=== PATIENT | female | born 1980 | race Caucasian/White ===

== ENCOUNTER 2016-07-05 08:59 | Emergency (ER) | payer OTHER, BC ==
[~2016-07-05 08:59] MED LIST: /MOM400 PO; COLA50CA3 PO; IBUP200T2 PO; LEVO500T PO; MORP15TA2 PO; TYLE650T30 PO; XERE5CRE TOP; [UNRECOGNIZED DRUG - OTHER] PO
[2016-07-05] MEDS ORDERED: IBUPROFEN 800 MG TAB As Ordered ONE (09:34)
--- NOTE | 2016-07-05 10:52 | REP ---
SACRUM AND COCCYX RADIOGRAPHS, 07/05/2016: COMPARISON: CT abdomen and pelvis 07/09/2013 only. FINDINGS: SI joints are intact. The sacrum and coccyx are without visualized fracture or displacement. The included portion of the symphysis pubis is intact , however, incompletely included in view. IMPRESSION: Negative sacrum and coccyx. The SI joints are intact bilaterally. MTDD
--- NOTE | 2016-07-05 10:53 | EDDOCDS ---
Nurse's Notes [facility] Name: June Betancourt Age: 35 yrs Sex: Female : 1980 Arrival Date: 07/05/2016 Time: 08:59 Bed PR1 / 25 Private MD: Arsh Nath Diagnosis: Fall on same level from slipping, tripping and stumbling;Contusion of lower back and pelvis Presentation: 07/05 09:14 Presenting complaint: Patient states: Slipped and fell injuring left side left lower mlb1 back with pain radiating upward into back. Adult Sepsis Screening: The patient does not have new or worsening altered mentation. Patient's respiratory rate is less than 22. Systolic blood pressure is greater than 100. Patient has a qSOFA score of 0- Negative Sepsis Screen. Suicide/Homicide risk assessment- the patient denies having any suicidal and/or homicidal ideations and does not present with any other emotional, behavioral or mental health complaints. Status: Patient is not a service porter or dependent. Transition of care: patient was not received from another setting of care. 09:14 Acuity: [place] Level 4 mlb1 09:14 Method Of Arrival: Walkin/Carried/Asstd mlb1 Triage Assessment: 09:16 General: Appears in no apparent distress, Behavior is appropriate for age, cooperative. mlb1 Pain: Location: left hip, low back Pain currently is 5 out of 10 on a pain scale. HIV screening NA for this visit Offered previously. 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 BCP Oral 1 tab once daily - PMHx: none; - PSHx: none; - Social history: Smoking status: Patient states former smoker of tobacco. No barriers to communication noted, The patient speaks fluent Kiswahili, Speaks appropriately for age. - Family history: Not pertinent. - : The pt / caregiver states he / she is not on anticoagulants. Home medication list is obtained from the patient. - Exposure Risk Screening:: None identified. Screenin:08 Screening information is obtained from the patient. Fall risk: No risks identified. mlb1 Assistance ADL's: requires no assistance with activities of daily living. Abuse/DV Screen: The patient / caregiver reports he/she is: not in a situation that causes fear, pain or injury. Nutritional screening: No deficits noted. Advance Directives: Currently, there is no health care proxy. home support is adequate. Assessment: 10:08 Musculoskeletal: Range of motion intact in all extremities. mlb1 10:51 General: Appears in no apparent distress, comfortable, Behavior is appropriate for age, mlb1 cooperative. Pain: Location: back, left hip Pain currently is 7 out of 10 on a pain scale. Neurological: No deficits noted. Vital Signs: 09:00 BP 128 / 74; Pulse 82; Resp 16; Temp 96.9(T); Pulse Ox 100% on R/A; Weight 63.5 kg; sew Height 5 ft. 6 in. (167.64 cm); Pain 4/10; 09:00 Body Mass Index 22.60 (63.50 kg, 167.64 cm) sew Vitals: 09:00 Log In Time: July 05, 2016 at 08:58. sew ED Course: 09:00 Patient visited by Shey Hidalgo. sew 09:00 Arsh Nath is Private Physician. sew 09:00 Patient moved to Waiting sew 09:01 Patient visited by Shey Hidalgo. sew 09:01 Patient moved to Pre RCE sew 09:13 Patient moved to Triage 3 mlb1 09:14 Patient visited by Willem Rodríguez RN. mlb1 09:15 Triage Initiated mlb1 09:18 Emeka Casper PA-C is PHCP. cc10 09:18 Shey Arzate MD is Attending Physician. cc10 09:22 Patient visited by Emeka Casper PA-C. cc10 09:22 Patient visited by Emeka Casper PA-C. cc10 09:39 Patient moved to TR1 mlb1 10:08 No IV's were initiated during this patient's visit. No procedures done that require mlb1 assistance. 10:41 Patient moved to PR1 / 25 jrd 10:44 Arsh Nath is Referral Physician. cc10 10:52 The patient / caregiver is instructed regarding the plan of care and ED course. mlb1 Administered Medications: 09:35 Drug: Ibuprofen 800 mg [ibuprofen 800 mg tablet (1 tabs)] Route: PO; mlb1 Order Results: There are currently no results for this order. Outcome: 10:44 Discharge ordered by Provider. cc10 10:52 Discharge Assessment: Patient awake, alert and oriented x 3. No cognitive and/or mlb1 functional deficits noted. Patient verbalized understanding of disposition instructions. patient administered narcotics - no. The following High Risk Discharge criteria are identified: None. Discharged to home ambulatory. Condition: good. Discharge instructions given to patient, Instructed on discharge instructions, follow up and referral plans. medication usage, no driving heavy equipment, Demonstrated understanding of instructions, medications, Pt was receptive of discharge instructions/ teaching. Prescriptions given X Work note provided to patient. No special radiology studies were completed. Property sent home with patient. 10:52 Patient left the ED. mlb1 Signatures: Willem Rodríguez RN RN mlb1 Shey Hidalgo Colin, PA-C PA-C cc10 Leoncio Russell, STEPHIE DIRECTOR CLIENT SERVICES jrd MTDD
--- NOTE | 2016-07-05 10:53 | EDDOCDS ---
Physician Documentation [facility] Name: June Betancourt Age: 35 yrs Sex: Female : 1980 Arrival Date: 07/05/2016 Time: 08:59 Bed PR Private MD: Arsh Nath Disposition: 07/05/16 10:44 Discharged to Home/Self Care. Impression: Fall on same level from slipping, tripping and stumbling, Contusion of lower back and pelvis. - Condition is Stable. - Discharge Instructions: Contusion. - Prescriptions for Ultram 50 mg Oral Tablet - take 1 tablet by ORAL route every 6 hours As needed MDD: 4 tabs; 16 tablet. - Medication Reconciliation, Local Pharmacy Hours, Work Release Form - 2 day form. - Follow up: Emergency Department; When: As needed. Follow up: Arsh Nath; When: Call to arrange an appointment; Reason: Wound/Symptom Recheck, Recheck today's complaints, Worsening of conditions, Continuance of care. - Problem is new. - Symptoms are unchanged. Historical: - Allergies: no known allergies; - Home Meds: 1. BCP Oral 1 tab once daily - PMHx: none; - PSHx: none; - Social history: Smoking status: Patient states former smoker of tobacco. No barriers to communication noted, The patient speaks fluent Grenadian, Speaks appropriately for age. - Family history: Not pertinent. - : The pt / caregiver states he / she is not on anticoagulants. Home medication list is obtained from the patient. - Exposure Risk Screening:: None identified. 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 6 in. (167.64 cm); Pain 4/10; 09:00 Body Mass Index 22.60 (63.50 kg, 167.64 cm) sew MDM: 09:27 Ibuprofen 800 mg PO once ordered. cc10 09:27 Sacrum/coccyx Ordered. EDMS 10:01 Financial registration complete. lg Administered Medications: 09:35 Drug: Ibuprofen 800 mg [ibuprofen 800 mg tablet (1 tabs)] Route: PO; mlb1 Signatures: Dispatcher [employer] Lilia Antonio, Reg Willem Ohara lg, RN RN mlb1 Emeka Casper, TATIANA PALucero cc10 MTDD
--- NOTE | 2016-07-07 11:53 | EDDOCDS ---
Physician Documentation [facility] Name: June Betancourt Age: 35 yrs Sex: Female : 1980 Arrival Date: 07/05/2016 Time: 08:59 Bed PR Private MD: Arsh Nath Disposition: 07/05/16 10:44 Discharged to Home/Self Care. Impression: Fall on same level from slipping, tripping and stumbling, Contusion of lower back and pelvis. - Condition is Stable. - Discharge Instructions: Contusion. - Prescriptions for Ultram 50 mg Oral Tablet - take 1 tablet by ORAL route every 6 hours As needed MDD: 4 tabs; 16 tablet. - Medication Reconciliation, Local Pharmacy Hours, Work Release Form - 2 day form. - Follow up: Emergency Department; When: As needed. Follow up: Arsh Nath; When: Call to arrange an appointment; Reason: Wound/Symptom Recheck, Recheck today's complaints, Worsening of conditions, Continuance of care. - Problem is new. - Symptoms are unchanged. Historical: - Allergies: no known allergies; - Home Meds: 1. BCP Oral 1 tab once daily - PMHx: none; - PSHx: none; - Social history: Smoking status: Patient states former smoker of tobacco. No barriers to communication noted, The patient speaks fluent [place] Citizen, Speaks appropriately for age. - Family history: Not pertinent. - : The pt / caregiver states he / she is not on anticoagulants. Home medication list is obtained from the patient. - Exposure Risk Screening:: None identified. 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 6 in. (167.64 cm); Pain 4/10; 09:00 Body Mass Index 22.60 (63.50 kg, 167.64 cm) sew MDM: 09:27 Ibuprofen 800 mg PO once ordered. cc10 09:27 Sacrum/coccyx Ordered. EDMS 10:01 Financial registration complete. lg 13:20 T-Sheet-- Draft Copy was scanned into [employer] and attached to record. gb 13:51 [facility] Payment Agreement was scanned into [employer] and attached to record. lg Administered Medications: 09:35 Drug: Ibuprofen 800 mg [ibuprofen 800 mg tablet (1 tabs)] Route: PO; mlb1 Signatures: Dispatcher [employer] EDMS Pratibha Fiore, Reg Reg gb CecyLilia, Reg Reg lg Willem Rodríguez RN RN mlb1 Emeka Casper, TATIANA PALucero cc10 The chart was reviewed and I authenticate all verbal orders and agree with the evaluation and treatment provided.Attachments: 13:20 T-Sheet-- Draft Copy 13:51 [facility] Payment Agreement lg Chart Complete MTDD
--- NOTE | 2016-07-07 11:53 | EDDOCDS ---
Physician Documentation [facility] Name: June Betancourt Age: 35 yrs Sex: Female : 1980 Arrival Date: 07/05/2016 Time: 08:59 Bed PR Private MD: Arsh Nath Disposition: 07/05/16 10:44 Discharged to Home/Self Care. Impression: Fall on same level from slipping, tripping and stumbling, Contusion of lower back and pelvis. - Condition is Stable. - Discharge Instructions: Contusion. - Prescriptions for Ultram 50 mg Oral Tablet - take 1 tablet by ORAL route every 6 hours As needed MDD: 4 tabs; 16 tablet. - Medication Reconciliation, Local Pharmacy Hours, Work Release Form - 2 day form. - Follow up: Emergency Department; When: As needed. Follow up: Arsh Nath; When: Call to arrange an appointment; Reason: Wound/Symptom Recheck, Recheck today's complaints, Worsening of conditions, Continuance of care. - Problem is new. - Symptoms are unchanged. Historical: - Allergies: no known allergies; - Home Meds: 1. BCP Oral 1 tab once daily - PMHx: none; - PSHx: none; - Social history: Smoking status: Patient states former smoker of tobacco. No barriers to communication noted, The patient speaks fluent Citizen Of [place], Speaks appropriately for age. - Family history: Not pertinent. - : The pt / caregiver states he / she is not on anticoagulants. Home medication list is obtained from the patient. - Exposure Risk Screening:: None identified. 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 6 in. (167.64 cm); Pain 4/10; 09:00 Body Mass Index 22.60 (63.50 kg, 167.64 cm) sew MDM: 09:27 Ibuprofen 800 mg PO once ordered. cc10 09:27 Sacrum/coccyx Ordered. EDMS 10:01 Financial registration complete. lg 13:20 T-Sheet-- Draft Copy was scanned into [employer] and attached to record. gb 13:51 [facility] Payment Agreement was scanned into [employer] and attached to record. lg Administered Medications: 09:35 Drug: Ibuprofen 800 mg [ibuprofen 800 mg tablet (1 tabs)] Route: PO; mlb1 Signatures: Dispatcher [employer] EDMS Pratibha Fiore, Reg Reg gb CecyLilia, Reg Reg lg Willem Rodríguez RN RN mlb1 Emeka Casper, TATIANA PALucero cc10 The chart was reviewed and I authenticate all verbal orders and agree with the evaluation and treatment provided.Attachments: 13:20 T-Sheet-- Draft Copy 13:51 [facility] Payment Agreement lg Chart Complete MTDD
--- NOTE | 2016-07-07 11:53 | EDDOCDS ---
Nurse's Notes [facility] Name: June Betancourt Age: 35 yrs Sex: Female : 1980 Arrival Date: 07/05/2016 Time: 08:59 Bed PR1 / 25 Private MD: Arsh Nath Diagnosis: Fall on same level from slipping, tripping and stumbling;Contusion of lower back and pelvis Presentation: 07/05 09:14 Presenting complaint: Patient states: Slipped and fell injuring left side left lower mlb1 back with pain radiating upward into back. Adult Sepsis Screening: The patient does not have new or worsening altered mentation. Patient's respiratory rate is less than 22. Systolic blood pressure is greater than 100. Patient has a qSOFA score of 0- Negative Sepsis Screen. Suicide/Homicide risk assessment- the patient denies having any suicidal and/or homicidal ideations and does not present with any other emotional, behavioral or mental health complaints. Status: Patient is not a service desk manager or dependent. Transition of care: patient was not received from another setting of care. 09:14 Acuity: [place] Level 4 mlb1 09:14 Method Of Arrival: Walkin/Carried/Asstd mlb1 Triage Assessment: 09:16 General: Appears in no apparent distress, Behavior is appropriate for age, cooperative. mlb1 Pain: Location: left hip, low back Pain currently is 5 out of 10 on a pain scale. HIV screening NA for this visit Offered previously. 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 BCP Oral 1 tab once daily - PMHx: none; - PSHx: none; - Social history: Smoking status: Patient states former smoker of tobacco. No barriers to communication noted, The patient speaks fluent Telugu, Speaks appropriately for age. - Family history: Not pertinent. - : The pt / caregiver states he / she is not on anticoagulants. Home medication list is obtained from the patient. - Exposure Risk Screening:: None identified. Screenin:08 Screening information is obtained from the patient. Fall risk: No risks identified. mlb1 Assistance ADL's: requires no assistance with activities of daily living. Abuse/DV Screen: The patient / caregiver reports he/she is: not in a situation that causes fear, pain or injury. Nutritional screening: No deficits noted. Advance Directives: Currently, there is no health care proxy. home support is adequate. Assessment: 10:08 Musculoskeletal: Range of motion intact in all extremities. mlb1 10:51 General: Appears in no apparent distress, comfortable, Behavior is appropriate for age, mlb1 cooperative. Pain: Location: back, left hip Pain currently is 7 out of 10 on a pain scale. Neurological: No deficits noted. Vital Signs: 09:00 BP 128 / 74; Pulse 82; Resp 16; Temp 96.9(T); Pulse Ox 100% on R/A; Weight 63.5 kg; sew Height 5 ft. 6 in. (167.64 cm); Pain 4/10; 09:00 Body Mass Index 22.60 (63.50 kg, 167.64 cm) sew Vitals: 09:00 Log In Time: July 05, 2016 at 08:58. sew ED Course: 09:00 Patient visited by Shey Hidalgo. sew 09:00 Arsh Nath is Private Physician. sew 09:00 Patient moved to Waiting sew 09:01 Patient visited by Shey Hidalgo. sew 09:01 Patient moved to Pre RCE sew 09:13 Patient moved to Triage 3 mlb1 09:14 Patient visited by Willem Rodríguez RN. mlb1 09:15 Triage Initiated mlb1 09:18 Emeka Casper PA-C is PHCP. cc10 09:18 Shey Arzate MD is Attending Physician. cc10 09:22 Patient visited by Emeka Casper PA-C. cc10 09:22 Patient visited by Emeka Casper PA-C. cc10 09:39 Patient moved to TR1 mlb1 10:08 No IV's were initiated during this patient's visit. No procedures done that require mlb1 assistance. 10:41 Patient moved to PR1 / 25 jrd 10:44 Arsh Nath is Referral Physician. cc10 10:52 The patient / caregiver is instructed regarding the plan of care and ED course. mlb1 11:19 Sacrum/coccyx Returned. EDMS 13:20 T-Sheet-- Draft Copy was scanned into [employer] and attached to record. gb 13:49 Patient name changed from June\S\Sola\S\Beirman\S\ to June\S\M\S\Beirman. EDMS 13:51 ON LICENSE OF [facility] Payment Agreement was scanned into [employer] and attached to record. lg Administered Medications: 09:35 Drug: Ibuprofen 800 mg [ibuprofen 800 mg tablet (1 tabs)] Route: PO; mlb1 Order Results: Radiology Order: Sacrum/coccyx Test: Sacrum/coccyx REASON FOR EXAMINATION: Trauma; SACRUM AND COCCYX RADIOGRAPHS, 07/05/2016:; ; COMPARISON: CT abdomen and pelvis 07/09/2013 only.; ; FINDINGS: SI joints are intact. The sacrum and coccyx are without visualized; fracture or displacement. The included portion of the symphysis pubis is intact; ,; however, incompletely included in view.; ; IMPRESSION:; Negative sacrum and coccyx. The SI joints are intact bilaterally.; ; MTDD Outcome: 10:44 Discharge ordered by Provider. cc10 10:52 Discharge Assessment: Patient awake, alert and oriented x 3. No cognitive and/or mlb1 functional deficits noted. Patient verbalized understanding of disposition instructions. patient administered narcotics - no. The following High Risk Discharge criteria are identified: None. Discharged to home ambulatory. Condition: good. Discharge instructions given to patient, Instructed on discharge instructions, follow up and referral plans. medication usage, no driving heavy equipment, Demonstrated understanding of instructions, medications, Pt was receptive of discharge instructions/ teaching. Prescriptions given X Work note provided to patient. No special radiology studies were completed. Property sent home with patient. 10:52 Patient left the ED. mlb1 Signatures: Dispatcher [facility] EDAK Pratibha Fiore, Reg Reg gb Lilia Sam, Reg Reg lg Willem Rodríguez RN RN mlb1 Shey Hidalgo Colin, PA-C PA-C cc10 Leoncio Russell PCA INSEMINATOR jrd Chart Complete MTDD
== END 2016-07-05 10:52 | disposition home or self-care (01) ==
LOC: M ED 08:59
DX: S30.0XXA Contusion of lower back and pelvis, initial encounter (principal); W00.0XXA Fall on same level due to ice and snow, initial encounter; Y92.89 Other specified places as the place of occurrence of the external cause; Y93.01 Activity, walking, marching and hiking; Y99.0 Civilian activity done for income or pay; Z87.891 Personal history of nicotine dependence; Z79.3 Long term (current) use of hormonal contraceptives

== ENCOUNTER 2019-01-29 10:50 | Emergency (ER) | payer BC, OTHER ==
[~2019-01-29] VITALS: Ht 167.6 cm; Wt 63.6 kg
[~2019-01-29 10:50] MED LIST changes: -/MOM400 PO; +MILK10SU PO
[2019-01-29] MEDS ORDERED: ONDANSETRON 4MG/2ML VIAL (J2405) As Ordered ONE (10:59)
[2019-01-29] MEDS ORDERED: [UNRECOGNIZED DRUG - CODE] (11:03)
[2019-01-29 11:17] LABS: BASO % 0.3 % (0.0-1.0); EOS % 0.3 % (0.0-3.0); HEMATOCRIT 40.7 % (36.0-47.0); HEMOGLOBIN 13.7 g/dl (12.0-15.5); LYMPH # 1.4 10^3/uL (1.5-4.5); LYMPH % 18.6 % (24.0-44.0); MEAN CORPUSCULAR HEMOGLOBIN 33.5 pg (27.0-33.0); MEAN CORPUSCULAR HGB CONC 33.7 g/dl (32.0-36.5); MEAN CORPUSCULAR VOLUME 99.5 fl (80.0-96.0); MONO # 0.4 10^3/uL (0.0-0.8); MONO % 5.5 % (0.0-5.0); NEUTROPHILS # 5.6 10^3/uL (1.8-7.7); PLATELET COUNT, AUTOMATED 294 10^3/uL (150-450); RED BLOOD COUNT 4.09 10^6/uL (4.00-5.40); WHITE BLOOD COUNT 7.5 10^3/uL (4.0-10.0)
[2019-01-29 11:50] LABS: BLOOD UREA NITROGEN 9 MG/DL (7-18); CALCIUM LEVEL 9.2 MG/DL (8.5-10.1); CARBON DIOXIDE LEVEL 26 MEQ/L (21-32); CHLORIDE LEVEL 102 MEQ/L (98-107); CK-MB VALUE MASS < 1.0 NG/ML (<3.6); CPK CREATINE PHOSPHOKINASE 128 U/L (26-192); CREATININE FOR GFR 0.69 MG/DL (0.55-1.30); GLOMERULAR FILTRATION RATE > 60.0 (>60); GLUCOSE, FASTING 95 MG/DL (70-100); MAGNESIUM LEVEL 2.1 MG/DL (1.8-2.4); MB/CK RELATIVE INDEX 0.78 (< OR =4); POTASSIUM SERUM 3.9 MEQ/L (3.5-5.1); SODIUM LEVEL 137 MEQ/L (136-145); TROPONIN I < 0.02 NG/ML (< 0.10)
[2019-01-29] MEDS ORDERED: ONDANSETRON 4MG/2ML VIAL (J2405) IV ONE (12:00)
--- NOTE | 2019-01-29 12:20 | REP ---
AXIAL CT OF THE HEAD WITHOUT CONTRAST CLINICAL INDICATION: Vertigo. COMPARISON: None FINDINGS: There is no visible soft tissue swelling or calvarial fracture. There is no evidence of acute intracranial hemorrhage, midline shift or mass effect. Ventricles and sulci are symmetric. Ronquillo-white matter differentiation is maintained. Basal cisterns are patent. The orbital contents are intact. The visualized paranasal sinuses are clear. Paranasal sinuses and mastoid air cells are clear. IMPRESSION: No acute intracranial abnormality. Electronically Signed by Colby Harris MD 01/29/2019 05:51 P
[2019-01-29] MEDS ORDERED: MECLIZINE 25 MG TABLET PO ONE ×2 (12:30→20:00)
[2019-01-29] MEDS ORDERED: LORazepam 2 MG/ML VIAL (J2060) IV ONE (13:00)
[2019-01-29] MEDS ORDERED: KETOROLAC 30 MG/ML VIAL (J1885) IV ONE (13:00)
[2019-01-29 14:29] LABS: C REACTIVE PROTEIN QUANTITATIV < 0.30 MG/DL (0.00-0.30); HCG, SERUM QUANTITATIVE < 1.0 MIU/ML
[2019-01-29 14:44] LABS: ERYTHROCYTE SEDIMENTATION RATE 8 mm/hr (0-20)
[2019-01-29] MEDS ORDERED: METOCLOPRAMIDE INJ 10MG/2ML VIAL (J2765) IV ONE (16:00)
[2019-01-29] MEDS ORDERED: PROHANCE 279.3MG/ML 15ML VIAL (A9576) As Ordered ONE (16:50)
--- NOTE | 2019-01-29 18:07 | REPVR ---
EXAM: MR Angiogram Head Without and With Contrast, Venogram EXAM DATE/TIME: 01/29/2019 5:16 PM CLINICAL HISTORY: 38 years old, female; Pain; Headache; Additional info: Vertigo (mrv), posterior headache TECHNIQUE: Imaging protocol: MR angiogram of the head without and with intravenous contrast. Exam focused on the veins. Contrast material: PROHANCE;Contrast volume: 12 ml;Contrast route: IV; COMPARISON: MRI-Brain without Contrast 01/29/2019 4:58 PM FINDINGS: Superior sagittal sinus: Patent. Straight sinus: Patent. Internal cerebral and cortical veins: Unremarkable as visualized. Transverse sinuses: Patent. Incidental left arachnoid granulation. Sigmoid sinuses: Patent. Internal jugular veins: Visualized segment patent. IMPRESSION: No venous thrombus. Electronically signed by: Carmen Soto On 01/29/2019 18:06:58 PM
--- NOTE | 2019-01-29 18:11 | REPVR ---
EXAM: MR Head Without Contrast EXAM DATE/TIME: 01/29/2019 5:16 PM CLINICAL HISTORY: 38 years old, female; Pain; Headache not specified; Patient HX: Posterior headache; Additional info: Vertigo TECHNIQUE: Imaging protocol: MR of the head without contrast. COMPARISON: CT Head without contrast 01/29/2019 11:21 AM FINDINGS: Brain: No acute infarct identified on the diffusion weighted imaging. No parenchymal hemorrhage. No evidence of brain parenchymal edema or intracranial mass effect. No significant white matter disease for the patient's age. Ventricles: Unremarkable. No ventriculomegaly. Bones/joints: Unremarkable. Soft tissues: Normal. Sinuses: Trace ethmoid sinus mucosal thickening. Mastoid air cells: Normal as visualized. No mastoid effusion. Orbits: Unremarkable. IMPRESSION: No acute intracranial abnormality. Electronically signed by: Carmen Soto On 01/29/2019 18:11:26 PM
[2019-01-29 19:37] VITALS: BP 114/67
[2019-01-29] MEDS ORDERED: MECL-86 PO (19:42)
[2019-01-29] MEDS ORDERED: REGL5TAB2 PO (19:42)
[2019-01-29] MEDS ORDERED: TOPA1TAB PO (19:44)
[2019-01-29] MEDS ORDERED: METOCLOPRAMIDE 5 MG TAB PO ONE (20:00)
--- NOTE | 2019-01-30 06:06 | ECGEPIP ---
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
== END 2019-01-29 20:25 | disposition home or self-care (01) ==
LOC: M ED 10:50
DX: R42 Dizziness and giddiness (principal); I45.19 Other right bundle-branch block; I47.1 Supraventricular tachycardia; Z87.891 Personal history of nicotine dependence; Z79.899 Other long term (current) drug therapy
CPT/HCPCS: 70450; 70546; 70551; 80048; 82550; 82553; 83735; 84443; 84484; 84702; 85025; 85652; 86140; 93005; 93041; 94760; 96374; 96375; 99285; A9576; J1885; J2060; J2405; J2765

== ENCOUNTER → 2019-04-25 | Outpatient (CLI) | payer BC, OTHER ==
[~2019-04-25] MED LIST changes: +MECL-86 PO; +REGL5TAB2 PO; +TOPA1TAB PO; +[UNRECOGNIZED DRUG - CODE]
--- NOTE | 2019-04-25 11:46 | REP ---
PA and lateral chest: There are no comparisons. There is an infiltrate inferiorly in the left lung. Remainder the lung medina are clear. No pleural effusions. Cardiac size is normal. The luciano, mediastinum, skeletal structures are unremarkable. Impression: Infiltrate in the left lung inferiorly. Electronically Signed by Young Tan MD 04/25/2019 11:38 A
== END ==
LOC: M ADAMS 11:04
PROVIDERS: ATTEND Physician Assistant
DX: J20.9 Acute bronchitis, unspecified (principal); R91.8 Other nonspecific abnormal finding of lung field

== ENCOUNTER → 2019-05-13 | Outpatient (REF) | payer OTHER ==
[2019-05-13 11:29] LABS: BASO % 0.4 % (0.0-1.0); EOS % 0.4 % (0.0-3.0); HEMATOCRIT 37.6 % (36.0-47.0); HEMOGLOBIN 12.5 g/dl (12.0-15.5); LYMPH # 0.4 10^3/uL (1.5-5.0); MEAN CORPUSCULAR HEMOGLOBIN 32.6 pg (27.0-33.0); MEAN CORPUSCULAR HGB CONC 33.2 g/dl (32.0-36.5); MEAN CORPUSCULAR VOLUME 98.2 fl (80.0-96.0); MONO # 0.4 10^3/uL (0.0-0.8); MONO % 6.4 % (0.0-5.0); NEUTROPHILS # 4.6 10^3/uL (1.5-8.5); NEUTROPHILS % 85.4 % (36.0-66.0); PLATELET COUNT, AUTOMATED 241 10^3/uL (150-450); RED BLOOD COUNT 3.83 10^6/uL (4.00-5.40); WHITE BLOOD COUNT 5.4 10^3/uL (4.0-10.0)
[2019-05-13 12:01] LABS: ALBUMIN 3.5 GM/DL (3.2-5.2); ALT/SGPT 17 U/L (12-78); BILIRUBIN,TOTAL 0.7 MG/DL (0.2-1.0); BLOOD UREA NITROGEN 6 MG/DL (7-18); CARBON DIOXIDE LEVEL 28 MEQ/L (21-32); CHLORIDE LEVEL 102 MEQ/L (98-107); CREATININE FOR GFR 0.64 MG/DL (0.55-1.30); GLOMERULAR FILTRATION RATE > 60.0 (>60); GLUCOSE, FASTING 86 MG/DL (70-100); HCG, SERUM QUANTITATIVE < 1.0 MIU/ML; POTASSIUM SERUM 3.8 MEQ/L (3.5-5.1); SODIUM LEVEL 137 MEQ/L (136-145)
== END ==
LOC: M LABDRWAD 10:26
PROVIDERS: ATTEND Physician Assistant
DX: R05 Cough (principal)

== ENCOUNTER → 2020-01-27 | Outpatient (REF) | payer OTHER | LOC: M SFHCWAGY 09:25 | PROVIDERS: ATTEND Surgery | DX: N60.02 Solitary cyst of left breast (principal) ==

== ENCOUNTER → 2020-01-27 | Outpatient (CLI) | payer BC ==
--- NOTE | 2020-03-09 08:44 | REP ---
FOCUSED LEFT BREAST ULTRASOUND: ULTRASOUND GUIDANCE HISTORY: Ultrasound guidance for cyst aspiration. FINDINGS: Sonographic guidance is provided to Dr. Sloan who performed ultrasound- guided left breast cyst aspiration. PAVAN
--- NOTE | 2020-03-09 08:46 | REP ---
BILATERAL BREAST SONOGRAPHY: HISTORY: Bilateral breast cysts and dense breast tissue. FINDINGS: Heterogeneous fibroglandular tissue is seen bilaterally. There is a cyst at 10 o'clock in the right breast 4 cm from the nipple measuring 2.6 x 1.9 x 1.2 cm. This appears simple. At 11 o'clock in the right breast, 3 cm from the nipple, there is a simple cyst measuring 1.5 x 1.2 x 1.3 cm. In the left breast at 12 o'clock, 4 cm from the nipple, there is a grouping of cysts with aggregate dimension of 1.7 cm x 0.7 x 1.0 cm. In the left breast at 1 o'clock, 2 cm from the nipple, there is a 0.7 x 0.7 x 0.6 cm cyst. No suspicious sonographic lesion. IMPRESSION: BI-RADS category 2 benign findings. MTDD
--- NOTE | 2020-03-10 19:36 | ROOPDOC ---
[facility] Report Of Operation Report of Operation This is a late entry note for the encounter from the date 01/27/20. Delay is due to major systemwide [facility] computer outage. Procedure Date:01/27/2020 Diagnosis: Left painful breast cyst Procedure:Aspiration of left painful left breast cyst Proceduralist: Suze Barron D.O. Lidocaine 1% LOT [id number] Expiration: 11/2022 Sodium Bicarbonate 8.4% LOT 06-081 EV Expiration: 11/2020 Procedure details: Informed consent was obtained. The most common risk and possible complications including bleeding, hematoma, bruising, infection, injury to surrounding structures were explained to the patient and she expressed understanding. Patient was taken to the procedure room and placed on the bed. Appropriate time out was done stating patients name, date of , and the procedure to be performed. The left breast was prepped and draped in the usual fashion. The ultrasound was used to confirm the location of the painful cyst in the upper outer quadrant of the left breast. Cyst measured over 4 cm. Plain Lidocaine 1% and 8.4% sodium bicarbonate 10:1 mix was used to numb the skin, and tissues along the anticipated aspiration tract. 18 G needle was used to aspirate cyst under direst ultrasound guidance. Aspirated fluid was turbid and was sent for cytology. 31 cc was aspirated. The cyst completely collapsed and images were captured. Manual pressure over the cyst aspiration site and tract was held. No bleeding was noted upon removal of the pressure. Patient tolerated procedure well. Discharge instructions were discussed with the patient and she expressed understanding. SUZE BARRON DO Mar 10, 2020 19:36
== END ==
LOC: M WHC 17:00
PROVIDERS: ATTEND Surgery
DX: N60.01 Solitary cyst of right breast (principal); N60.12 Diffuse cystic mastopathy of left breast

== ENCOUNTER → 2020-02-01 | Outpatient (REF) | payer OTHER, BC | LOC: M LAB REF 12:06 | PROVIDERS: ATTEND Physician Assistant | DX: N39.0 Urinary tract infection, site not specified (principal) ==

== ENCOUNTER → 2020-06-23 | Outpatient (CLI) | payer BC ==
--- NOTE | 2020-06-23 10:17 | REP ---
INDICATION: LEFT BREAST CALCS,BIRADS 3,6 MO F/U/PREV LARGE CYST ASP; LEFT BREAST SITE OF PREVIOUS LARGE CYST ASPIRATION. COMPARISON: 01/06/2020. TECHNIQUE: Left breast mammogram performed in the MLO, mL and CC projections with tomosynthesis and magnification views. Focused left breast ultrasound performed. FINDINGS: The breast parenchyma is extremely dense, limiting the sensitivity of the mammogram. The previously noted large simple cyst the upper-outer quadrant of the left breast was reportedly aspirated is no longer visualized. There does appear to be a smoothly marginated nodule in that region by 1.3 cm in diameter. Otherwise no definite mass is visualized and there is no evidence of architectural distortion. There are tiny calcifications visualized once again in the upper-outer quadrant of the left breast. These are not tightly clustered but there is a geographic area of multiple tiny calcifications this may have slightly increased in number. These are indeterminate and stereotactic biopsy is recommended. Left breast ultrasound performed in the upper-outer quadrant at the site of the previously noted simple cyst. Multiple simple cysts are seen throughout the upper outer quadrant of the left breast. Two simple cysts are seen at 12 o'clock the largest measuring 1.3 cm in diameter. There is a 5 mm cyst at 1 o'clock. There are 4 cysts at 2 o'clock, the largest measuring 1.3 cm in diameter. There are 2 mildly dilated ducts in the retroareolar region containing simple fluid. The Volpara volumetric breast density pattern is C. IMPRESSION: BIRADS/ACR category 4, suspicious. In the upper outer quadrant of the left breast there are tiny calcifications which may have slightly increased in number when compared to the prior study. There are not tightly clustered but are located in a geographic area of the upper-outer quadrant. They are indeterminate. Stereotactic biopsy is recommended. Multiple small cysts are seen throughout the upper outer quadrant of the left breast. This patient's Tyrer-Cuzick lifetime breast cancer risk assessment score is 11.8%. This mammogram was interpreted with the aid of an FDA-approved computer-aided detection system. The patient states she had a clinical breast exam in January 2020. The patient letter being requested is M4. RECOMMENDATION: Recommend stereotactic biopsy of microcalcifications upper outer quadrant left breast. <Electronically signed by Young Ronquillo > 06/23/20 101
== END ==
LOC: M WHC 07:43
PROVIDERS: ATTEND Surgery
DX: R92.1 Mammographic calcification found on diagnostic imaging of breast (principal); N60.02 Solitary cyst of left breast
CPT/HCPCS: 76642; 77065; G0279

== ENCOUNTER → 2020-06-27 | Outpatient (REF) | payer OTHER ==
[2020-06-27 16:14] LABS: FREE T4 0.91 NG/DL (0.76-1.46); THYROID STIMULATING HORMONE 0.747 uIU/ML (0.358-3.740)
[2020-06-27 16:16] LABS: PROLACTIN 3.7 NG/ML
== END ==
LOC: M PLALAB 13:30
PROVIDERS: ATTEND Surgery
DX: N64.52 Nipple discharge (principal)

== ENCOUNTER → 2020-06-29 | Outpatient (CLI) | payer BC ==
--- NOTE | 2020-06-29 12:53 | REP ---
INDICATION: R92.1 LT BREAST CALCIFICATIONS,STEROTACTIC BIOPSY. COMPARISON: 06/23/2020. TECHNIQUE: States that the guidance provided for Dr. Sloan who performed stereotactic biopsy of microcalcifications in the outer left breast. FINDINGS: Stereotactic guidance provided for Dr. Sloan performed stereotactic biopsy of microcalcifications in the outer left breast. IMPRESSION: Stereotactic guidance provided for Dr. Sloan performed stereotactic biopsy of microcalcifications in the outer left breast. RECOMMENDATION: Clinical follow-up. <Electronically signed by Young Ronquillo > 06/29/20 [id number]
--- NOTE | 2020-06-29 12:56 | REP ---
INDICATION: R92.1 LT BREAST CALCIFICATIONS,POST STEROTACTIC BIOPSY. COMPARISON: 06/23/2020. TECHNIQUE: ML and CC views left breast performed s/p stereotactic biopsy upper-outer left breast microcalcifications. FINDINGS: Two biopsy clips are appropriately placed in the upper-outer quadrant of the left breast at the site of stereotactic biopsies performed today by Dr. Sloan. IMPRESSION: Two biopsy clips in the upper outer quadrant of the left breast at the site of 2 stereotactic biopsies performed today by Dr. Sloan. Specimen radiographs showed microcalcifications in the specimens. RECOMMENDATION: Clinical follow-up. <Electronically signed by Young Ronquillo > 06/29/20 [id number]
--- NOTE | 2020-06-29 13:44 | REP ---
INDICATION: R92.1 LT BREAST CALCIFICATIONS,STEROTACTIC BIOPSY. COMPARISON: 06/23/2020. TECHNIQUE: Specimen radiographs performed. FINDINGS: Multiple microcalcifications are seen in the biopsy specimens. IMPRESSION: Successful sampling of microcalcifications outer left breast. RECOMMENDATION: Clinical follow-up. <Electronically signed by Young Ronquillo > 06/29/20 [id number]
[2020-06-29 16:52] VITALS: BP 130/68
--- NOTE | 2020-07-02 22:36 | ROOPDOC ---
[facility] Report Of Operation Report of Operation DATE OF PROCEDURE: 06/29/20 DIAGNOSIS: Left breast suspicious calcifications, numerous clusters PROCEDURE: Left breast stereotactic biopsy of two clusters with clips placement SURGEON: Suze Barron BLOOD LOSS: minimal Lidocaine 1% LOT [id number] Expiration 02/06 Sodium Bicarbonate 8.4% LOT 06-081-[id number] Expiration 12/05 LATERAL BIOPSY SITE Hydromark clip [id number] Expiration 09/05 T1 titanium shaped 1 Bx device: Stereotactic Mammotome Revolve Dual Vacuum- assisted Biopsy System 10 G LOT [id number] Expiration 02/06 MEDIAL BIOPSY SITE Hydromark clip LOT [id number] Expiration 07/08 T3 titanium shaped 3 Bx device: Stereotactic Mammotome Revolve Dual Vacuum- assisted Biopsy System 10 G LOT [id number] Expiration 02/06 Informed consent was obtained in the preop area. The most common risk and possible complications including bleeding, hematoma, bruising, infection, injury to surrounding structures were explained to the patient and she expressed understanding. Patient was taken to the procedure room and placed prone [facility] with the left breast hanging through the table aperture. Left breast was placed into Cranio-Caudal compression and Analytics Architect carmelo images were taken. Suspicious clusters of calcifications were identified on the carmelo images and two clusters, one lateral, one medial were set as targets. CC approach from the top was chosen for this procedure. At this time, since we were able to confirm visibility of the suspicious clusters of calcifications and patient tolerated prone positioning allowing to proceed with the biopsy, appropriate time out was done stating patients name, date of , and the procedure to be performed. The left breast in CC compression was prepped in the usual fashion. Our attention was turned toward the lateral cluster of calcifications. Plain Lidocaine 1% and 8.4% sodium bicarbonate 10:1 mix was used to anesthetize the skin, the biopsy site and tissues along the anticipated biopsy tract. Small skin incision was made with blade number 11. Mammotome 10 G stereotactic breast biopsy device was inserted through the incision and advanced to the previously set coordinates marking the target lesion. Pre-fire imaging was taken to assure appropriate positioning. At this time, Mammotome 10 G breast biopsy device was fired and vacuum assisted biopsies were collected. The biopsy samples were investigated with [employer] Imaging system and calcifications were observed. Biopsy samples were then placed in the formaldehyde, marked with patients name and left lateral breast biopsy site, and sent to pathology for evaluation. SHAPE 1 Hydromark clip was placed into the Mammotome biopsy device channel and deployed. Post-deployment imaging was done to assure appropriate clip deployment. Clip was noted in the lateral left breast. Next, our attention was turned toward the medial cluster of calcifications. The left breast in CC compression was prepped in the usual fashion. Our attention was turned toward the lateral cluster of calcifications. Plain Lidocaine 1% and 8.4% sodium bicarbonate 10:1 mix was used to anesthetize the skin, the biopsy site and tissues along the anticipated biopsy tract. Small skin incision was made with blade number 11. Mammotome 10 G stereotactic breast biopsy device was inserted through the incision and advanced to the previously set coordinates marking the target lesion. Pre-fire imaging was taken to assure appropriate positioning. At this time, Mammotome 10 G breast biopsy device was fired and vacuum assisted biopsies were collected. The biopsy samples were investigated with [employer] Imaging system and calcifications were observed. Biopsy samples were then placed in the formaldehyde, marked with patients name and left medial breast biopsy site, and sent to pathology for evaluation. SHAPE 3 Hydromark clip was placed into the Mammotome biopsy device channel and deployed. Post-deployment imaging was done to assure appropriate clip deplo yment. Clip was noted in the medial left breast. At this point, paddle CC compression of the left breast was released and manual pressure was held to decrease harmonic effect and to assure hemostasis. No bleeding was noted upon removal of the pressure. Patient was slowly repositioned and placed into sitting position, and then assisted off the table. Post-biopsy mammogram of the left breast was obtained and showed clips in expected position. Postprocedural dressing was placed. Patient tolerated procedure well and was taken to the recovery unit in stable condition. Discharge instructions were discussed with the patient and she expressed understanding. SUZE BARRON DO Jul 02, 2020 22:36
== END ==
LOC: M WHCPRO 10:29
PROVIDERS: ATTEND Surgery
DX: N60.12 Diffuse cystic mastopathy of left breast (principal); R92.1 Mammographic calcification found on diagnostic imaging of breast

== ENCOUNTER → 2020-08-19 | Outpatient (REF) | payer OTHER | LOC: M LAB REF 15:20 | PROVIDERS: ATTEND Family Medicine | DX: N39.0 Urinary tract infection, site not specified (principal) ==

== ENCOUNTER 2020-09-26 17:15 | Emergency (ER) | payer OTHER, BC ==
[2020-09-26 20:37] LABS: BASO # 0.1 10^3/uL (0.0-0.2); BASO % 0.5 % (0.0-1.0); EOS % 0.2 % (0.0-3.0); HEMATOCRIT 39.9 % (36.0-47.0); HEMOGLOBIN 13.1 g/dl (12.0-15.5); LYMPH # 2.4 10^3/uL (1.5-5.0); LYMPH % 21.5 % (24.0-44.0); MEAN CORPUSCULAR HEMOGLOBIN 32.2 pg (27.0-33.0); MEAN CORPUSCULAR HGB CONC 32.8 g/dl (32.0-36.5); MONO # 0.6 10^3/uL (0.0-0.8); MONO % 5.2 % (2.0-8.0); NEUTROPHILS % 72.2 % (36.0-66.0); PLATELET COUNT, AUTOMATED 293 10^3/uL (150-450); RED BLOOD COUNT 4.07 10^6/uL (4.00-5.40); WHITE BLOOD COUNT 11.1 10^3/uL (4.0-10.0)
[2020-09-26 20:40] LABS: APPEARANCE, URINE CLEAR (CLEAR); BACTERIA, URINE AUTO 1+ (NEGATIVE); BILIRUBIN, URINE AUTO NEGATIVE (NEGATIVE); BLOOD, URINE BLOOD NEGATIVE (NEGATIVE); COLOR, URINE YELLOW (YELLOW); GLUCOSE, URINE (UA) AUTO NEGATIVE (NEGATIVE); KETONE, URINE AUTO TRACE mg/dL (NEGATIVE); LEUKOCYTE ESTERASE, URINE AUTO TRACE (NEGATIVE); MUCUS, URINE SMALL (NEGATIVE); NITRITE, URINE AUTO NEGATIVE (NEGATIVE); PROTEIN, URINE AUTO NEGATIVE (NEGATIVE); RBC, URINE AUTO 2 /HPF (0-3); SPECIFIC GRAVITY URINE AUTO 1.008 (1.002-1.035); SQUAMOUS EPITHELIAL CELL UR AU 0 /HPF (0-6); UROBILINOGEN, URINE AUTO 0.2 mg/dL (0.0-2.0); WBC, URINE AUTO 1 /HPF (0-3)
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
[2020-09-26] MEDS ORDERED: ONDANSETRON 4MG/2ML VIAL IV ONE (21:30)
[2020-09-26] MEDS ORDERED: diazePAM 10MG/2ML SYRINGE (J3360 PER 5MG) IV ONE ×2 (21:30→23:10)
[2020-09-26] MEDS ORDERED: ISOVUE-370 76% 100ML VIAL As Ordered ONE (21:42)
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
[2020-09-26] MEDS ORDERED: KETOROLAC 30 MG/ML 1ML VIAL IV ONE (23:10)
[2020-09-26] MEDS ORDERED: NAPR-837 PO (23:15)
[2020-09-26] MEDS ORDERED: ASPE4PAD TOP (23:15)
[2020-09-26] MEDS ORDERED: ROBA750T4 PO (23:15)
[2020-09-26 23:55] VITALS: BP 139/78
== END 2020-09-26 23:58 | disposition home or self-care (01) ==
LOC: M ED 17:15
DX: M54.2 Cervicalgia (principal); M54.9 Dorsalgia, unspecified; R51.9 Headache, unspecified; V43.52XA Car driver injured in collision with other type car in traffic accident, initial encounter; Y92.9 Unspecified place or not applicable; Y93.9 Activity, unspecified; Y99.9 Unspecified external cause status; F17.200 Nicotine dependence, unspecified, uncomplicated; Z79.3 Long term (current) use of hormonal contraceptives; Z79.899 Other long term (current) drug therapy
CPT/HCPCS: 70450; 71250; 72125; 74177; 80047; 81001; 84702; 85025; 96374; 96375; 96376; 99284; J1885; J2405; J3360; Q9967

== ENCOUNTER → 2020-12-15 | Outpatient (CLI) | payer BC ==
[~2020-12-15] MED LIST changes: +ASPE4PAD TOP; +NAPR-837 PO; +ROBA750T4 PO
--- NOTE | 2020-12-15 13:44 | REPMRS ---
Patient History The patient states she had a clinical breast exam in July 2020. Benign stereotatic loc for ea lesion. of the left breast, June 29, 2020. Benign radio exam breast specimen. of the left breast, June 29, 2020. Taking hormonal contraceptives for 22 years. Diagnostic Unilateral Mammo: Left Breast - December 15, 2020 - Exam #: [id number] CC and MLO view(s) were taken of the left breast. Technologist: Megan Jovel, Technologist Prior study comparison: June 23, 2020, left breast diagnostic unilateral mammo performed at [facility]. January 04, 2020, bilateral digital mammo screening bilat, performed at [facility]. FINDINGS: The breast tissue is heterogeneously dense. This may lower the sensitivity of mammography. There has been no change in the appearance of the left breast parenchyma in the interval since the prior examination. No mass, architectural distortion, or microcalcific grouping has developed. No suspicious finding. There are 2 needle biopsy marker clips noted in the upper outer quadrant of the left breast unchanged from the comparison study of June 29, 2020. There are a few scattered dispersed punctate calcifications again noted. No mass lesion is seen. No suspicious clustering. No architectural distortion. 3-D tomosynthesis shows no additional findings. Assessment: BI-RADS/ACR category 2 mammogram. Benign Findings. Recommendation Routine screening mammogram of both breasts in 6 months. This patient's [facility] Lifetime Breast Cancer RIsk is estimated at 11.8 %. This mammogram was interpreted with the aid of an FDA-approved computer-aided dectection system. Electronically Signed By: Erasmo Gardner MD 12/15/20 [id number]
== END ==
LOC: M WHC 07:48
PROVIDERS: ATTEND Surgery
DX: R92.1 Mammographic calcification found on diagnostic imaging of breast (principal)
CPT/HCPCS: 77065; G0279

== ENCOUNTER → 2021-03-30 | Outpatient (REF) | payer BC, OTHER | LOC: M LAB REF 16:44 | PROVIDERS: ATTEND Physician Assistant | DX: J06.9 Acute upper respiratory infection, unspecified (principal) ==

== ENCOUNTER → 2021-05-01 | Outpatient (REF) | payer BC, OTHER ==
[2021-05-01 14:18] LABS: BASO % 0.5 % (0.0-1.0); EOS % 0.7 % (0.0-3.0); HEMATOCRIT 37.2 % (36.0-47.0); HEMOGLOBIN 11.9 g/dl (12.0-15.5); LYMPH # 1.7 10^3/uL (1.5-5.0); LYMPH % 28.2 % (24.0-44.0); MEAN CORPUSCULAR HEMOGLOBIN 32.1 pg (27.0-33.0); MEAN CORPUSCULAR VOLUME 100.3 fl (80.0-96.0); MONO # 0.4 10^3/uL (0.0-0.8); MONO % 6.2 % (2.0-8.0); NEUTROPHILS # 3.9 10^3/uL (1.5-8.5); NEUTROPHILS % 64.1 % (36.0-66.0); PLATELET COUNT, AUTOMATED 292 10^3/uL (150-450); RED BLOOD COUNT 3.71 10^6/uL (4.00-5.40); WHITE BLOOD COUNT 6.1 10^3/uL (4.0-10.0)
[2021-05-01 14:55] LABS: ALBUMIN 3.4 GM/DL (3.2-5.2); ALT/SGPT 16 U/L (12-78); BILIRUBIN,TOTAL 0.9 MG/DL (0.2-1.0); BLOOD UREA NITROGEN 10 MG/DL (7-18); CALCIUM LEVEL 8.9 MG/DL (8.5-10.1); CARBON DIOXIDE LEVEL 29 MEQ/L (21-32); CHLORIDE LEVEL 107 MEQ/L (98-107); CHOLESTEROL LEVEL 177 MG/DL (<200); CHOLESTEROL RISK RATIO 1.806 (<5); CREATININE FOR GFR 0.65 MG/DL (0.55-1.30); FERRITIN 28 NG/ML (8-252); FREE T4 0.85 NG/DL (0.76-1.46); GLOMERULAR FILTRATION RATE > 60.0 (>58); GLUCOSE, FASTING 84 MG/DL (70-100); HDL CHOLESTEROL 98 MG/DL (>40); IRON (FE) 169 UG/DL (50-170); LDL CHOLESTEROL 57 MG/DL (<100); NON-HDL-C 79 MG/DL; PERCENT SATURATION 44.4 % (13.2-45.0); POTASSIUM SERUM 4.4 MEQ/L (3.5-5.1); SODIUM LEVEL 141 MEQ/L (136-145); THYROID STIMULATING HORMONE 0.899 uIU/ML (0.358-3.740); TOTAL IRON BINDING CAPACITY 381 UG/DL (250-450); TOTAL PROTEIN 6.9 GM/DL (6.4-8.2); TRIGLYCERIDES LEVEL 111 MG/DL (<150)
[2021-05-01 14:57] LABS: TOTAL 25(OH) VITAMIN D 48.9 NG/ML (30.0-100.0)
== END ==
LOC: M LABDRWAD 13:00
PROVIDERS: ATTEND Physician Assistant
DX: Z13.29 Encounter for screening for other suspected endocrine disorder (principal); Z13.220 Encounter for screening for lipoid disorders

== ENCOUNTER → 2021-08-15 | Outpatient (CLI) | payer BC, OTHER | LOC: M WHC 12:52 | PROVIDERS: ATTEND Nurse Practitioner Women's Health | DX: R92.2 Inconclusive mammogram (principal); N63.10 Unspecified lump in the right breast, unspecified quadrant; N63.20 Unspecified lump in the left breast, unspecified quadrant | CPT/HCPCS: 77066; G0279 ==

== ENCOUNTER → 2022-03-16 | Outpatient (CLI) | payer BC, OTHER | LOC: M PLALAB 14:18 | PROVIDERS: ATTEND Nurse Practitioner Women's Health | DX: Z13.79 Encounter for other screening for genetic and chromosomal anomalies (principal) ==

== ENCOUNTER → 2022-04-17 | Outpatient (REF) | payer OTHER | LOC: M LAB REF 17:35 | PROVIDERS: ATTEND Nurse Practitioner Adult Health | DX: N39.0 Urinary tract infection, site not specified (principal) ==

== ENCOUNTER → 2022-08-16 | Outpatient (CLI) | payer BC, OTHER | LOC: M WHC 07:31 | PROVIDERS: ATTEND Nurse Practitioner Women's Health | DX: N60.01 Solitary cyst of right breast (principal); N60.02 Solitary cyst of left breast; R92.2 Inconclusive mammogram ==

== ENCOUNTER → 2022-08-16 | Outpatient (CLI) | payer BC, OTHER | LOC: M WHC 08:27 | PROVIDERS: ATTEND Nurse Practitioner Women's Health | DX: N60.01 Solitary cyst of right breast (principal); N60.02 Solitary cyst of left breast; N92.2 Excessive menstruation at puberty | CPT/HCPCS: 76641; 77065; G0279 ==

== ENCOUNTER → 2022-08-29 | Outpatient (REF) | payer BC, OTHER | LOC: M SFHCWAGY 17:58 | PROVIDERS: ATTEND Surgery | DX: N60.02 Solitary cyst of left breast (principal) ==

== ENCOUNTER → 2022-08-29 | Outpatient (CLI) | payer BC, OTHER ==
[2022-08-29 12:07] VITALS: BP 130/82
== END ==
LOC: M WHCPRO 10:35
PROVIDERS: ATTEND Surgery
DX: R92.8 Other abnormal and inconclusive findings on diagnostic imaging of breast (principal); N63.15 Unspecified lump in the right breast, overlapping quadrants; N60.12 Diffuse cystic mastopathy of left breast
CPT/HCPCS: 10005; 10006; 19083; 77065; 88305; G0279